=== PATIENT | female | born 1975 ===

== ENCOUNTER 2016-07-28 14:18 | Emergency (ER) | payer MEDICAID, OTHER ==
[~2016-07-28] VITALS: Ht 157.5 cm; Wt 69.1 kg
[2016-07-28 14:21] VITALS: BP 126/79; PULSE 66; RESP 16; O2SAT 99
[2016-07-28] MEDS ORDERED: HYDROcodone-APAP 5-325 mg Tablet PO ONE (14:35)
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
[2016-07-28] MEDS ORDERED: CYCL5TAB PO (16:20)
[2016-07-28 16:49] VITALS: BP 104/74; PULSE 66; RESP 16; O2SAT 97
== END 2016-07-28 16:58 | disposition home or self-care (01) ==
LOC: SED 14:18
DX: S16.1XXA Strain of muscle, fascia and tendon at neck level, initial encounter (principal); V43.52XA Car driver injured in collision with other type car in traffic accident, initial encounter; Y93.89 Activity, other specified; Y92.410 Unspecified street and highway as the place of occurrence of the external cause; Y99.8 Other external cause status; F17.200 Nicotine dependence, unspecified, uncomplicated; Z91.040 Latex allergy status